=== PATIENT | male | born 1945 | race Caucasian/White ===

== ENCOUNTER → 2017-04-14 | Outpatient (CLI) | payer MEDICARE, OTHER, MEDICAID ==
--- NOTE | ~2017-04-14 | PUL ---
PATIENT'S NAME: JUAN HADLEY [facility] AGE: 71 Y [address] ROOM: [place] [id number] LOCATION: [facility] ADMIT DATE: 04/14/2017 Pulmonary DISCHARGE DATE: FAMILY PHYSICIAN: PHYSICIAN, NO ATTENDING PHYSICIAN: VENKAT DUCKWORTH NAME OF PROCEDURE: Pulmonary Function Test DATE OF PROCEDURE: April 14, 2017 TECH: MARVIN Jorge REASON FOR EXAM: COPD PROCEDURES DONE: Spirometry with bronchodilator assessment. RESULTS: The pre bronchodilator FVC was 3.05 liters, 68% of predicted; post bronchodilator FVC was 3.31 liters, 74% of predicted. The pre bronchodilator FEV1 was 2.15 liters, 65% of predicted; post-bronchodilator FEV1 was 2.32 liters, 70% of predicted. FEF 5-25% was 1.12 liters/second, 44% of predicted. Maximum voluntary ventilation was 91 liters/minute, 71% of predicted. The PFTs did not change significantly following a bronchodilator. Flow volume loop pattern is normal. PHYSICIAN INTERPRETATION: The above spirometry data and the corresponding flow volume curve suggest mild airflow obstruction without any significant bronchodilator response. Farther studies including lung volume measurements should be recommended to rule out any concomitant restrictive changes. MD NIKA LOPEZ/quintin /[id number] dtt: 04/23/17 1617 CAMILO MEENAKSHI dtd: 04/17/17 0849
--- NOTE | ~2017-04-14 | PUL ---
PATIENT'S NAME: JUAN HADLEY [facility] AGE: 71 Y [address] ROOM: [place] [id number] LOCATION: [facility] ADMIT DATE: 04/14/2017 Pulmonary DISCHARGE DATE: FAMILY PHYSICIAN: PHYSICIAN, NO ATTENDING PHYSICIAN: VENKAT DUCKWORTH NAME OF PROCEDURE: Six Minute Walk Test DATE OF PROCEDURE: April 14, 2017 TECH: MARVIN Jorge REASON FOR EXAM: COPD RESULTS: The total distance walked was 1400 feet. Pretest SpO2 was 96%, witch went down to 93% during walking, but came up to 95% post test. The patient was on room air the whole time. Pre test heart rate was 64 beats per minute, went up to 108 beats per minute during exercise, and came down to 106 beats per minute post test. Pretest blood pressure was 134/87, post test blood pressure was 160/86. The patient complained of dyspnea on exertion. REFERRING PHYSICIAN: No evidence of exercise-induced desaturation during six minute walk test. The total distance walked is 1400 feet. MD NIKA LOPEZ/quintin /[id number] dtt: 04/23/17 1619 CAMILO MEENAKSHI dtd: 04/17/17 0925
== END | disposition disaster alternative care site (69) ==
LOC: GRTH 12:13
DX: J44.9 Chronic obstructive pulmonary disease, unspecified (principal)